=== PATIENT | female | born 1960 | race Caucasian/White ===

== ENCOUNTER → 2018-03-08 08:45 | Outpatient (CLI) | payer BC, SELFPAY ==
[2018-03-08 10:20] LABS: AST(SGOT) 22 U/L (15-37); Alanine Aminotransfer ALT/SGPT 24 U/L (13-56); Albumin, Serum 3.8 g/dL (3.2-5.0); Alkaline Phosphatase 75 U/L (45-117); Anion Gap 9 (5-15); BUN 12 mg/dL (7-18); BUN/Creat Ratio 16.5 RATIO (10-20); Calcium,Total 8.6 mg/dL (8.5-10.1); Chloride 108 mmol/L (98-107); Cholesterol 146 mg/dL (200); Creatinine, Serum 0.73 mg/dL (0.55-1.02); EST Glomerular Filtration Rate 87 mL/min (>60); Est Glom Filt Rate - Afr Amer 105 mL/min (>60); Globulin 3.9 g/dL (2.2-4.2); Glucose 91 mg/dL (74-106); High Density Lipoprotein 56 mg/dL; Potassium 4.2 mmol/L (3.5-5.1); Protein, Total 7.7 g/dL (6.4-8.2); Sodium Level 144 mmol/L (136-145); Thyroid Stim Hormone (TSH) 1.57 uIU/mL (0.358-3.74); Triglycerides 63 mg/dL; Very Low Density Lipoprotein 13 mg/dL (5-40)
== END ==
PROVIDERS: Family Provider Family Medicine; PCP Family Medicine; Visit Provider Family Medicine
DX: Z00.00 Encounter for general adult medical examination without abnormal findings (principal); R53.83 Other fatigue
CPT/HCPCS: 36415; 80053; 80061; 84443

== ENCOUNTER → 2018-03-23 12:18 | Outpatient (CLI) | payer BC, SELFPAY ==
--- NOTE | 2018-03-23 12:22 | BI_ITS ---
MAMMOGRAPHY - BILATERAL SCREENING 3-D CA SYNTHESIS REASON FOR EXAM: Female, 57 years old. Bilateral Screening 3-D tomosynthesis PERTINENT HISTORY: Asymptomatic. Fairly breast carcinoma, paternal aunt, age 50. TECHNIQUE: 2-D mammograms and 3-D Ca synthesis of the breast (s) were performed. CAD was performed. COMPARISON: 08/04/2016, 08/07/2015 FINDINGS: The breast composition is composed of scattered fibroglandular density. No significant asymmetric density, architecture distortion, abnormal microcalcification cluster, dominant mass, adenopathy, skin thickening or nipple retraction identified. Coarse benign-appearing calcifications. BI/SCREENING MAMM (CAD), BILAT IMPRESSION: No mammographic signs of malignancy. Routine yearly mammograms recommended. ASSESSMENT CATEGORY: BIRADS Category 2: Benign. A letter regarding these results will be sent to the patient by the facility within 30 days. FOLLOW UP RECOMMENDATION: Yearly follow up mammogram recommended. (A) Negative mammographic results should not deter biopsy as a palpable lesion should be followed on clinical grounds and biopsy performed if clinically persistent for 3 months or increasing size. Approximately 10% of breast cancers are not detected by mammography. A normal mammogram should not delay biopsy of a clinically suspicious abnormality. Electronically Signed: Elmo Burger, at 21:18 EDT Tel , Service support ,
== END ==
PROVIDERS: Family Provider Family Medicine; PCP Family Medicine; Visit Provider Family Medicine
DX: Z12.31 Encounter for screening mammogram for malignant neoplasm of breast (principal)
CPT/HCPCS: 77063; 77067

== ENCOUNTER → 2019-03-24 11:57 | Outpatient (CLI) | payer OTHER, SELFPAY ==
[2019-02-22 13:33] VITALS: BMI 29.5
--- NOTE | 2019-03-24 12:01 | BI_ITS ---
MAMMOGRAPHY - BILATERAL SCREENING REASON FOR EXAM: Female, 58 years old. Routine annual screening examination. PERTINENT HISTORY: Aunt with breast cancer. TECHNIQUE: Digital bilateral breast ca (3D mammographic acquisition) in the CC and MLO projections. 2-D mediolateral oblique (MLO) and craniocaudad (CC) views of both breasts were obtained. CAD: Full Field Digital Mammography with Computer Added Detection was performed. COMPARISON: Comparison is made with prior study dated March 23, 2018. FINDINGS: Breast Composition: There are scattered areas of fibroglandular density. There are no dominant masses or suspicious calcifications. No other significant abnormalities are identified. There has been no significant change since the prior study. BI/SCREEN MAMM (CAD) W/CA BILAT IMPRESSION: Stable bilateral screening mammogram. Yearly follow-up mammogram recommended. (A) ASSESSMENT CATEGORY: BIRADS Category 1: Negative. A letter regarding these results will be sent to the patient by the facility within 30 days. Approximately 10% of breast cancers are not detected by mammography. A normal mammogram should not delay biopsy of a clinically suspicious abnormality. [id number] Electronically Signed: Zurdo Paul, at 13:24 EDT , Service support ,
== END ==
PROVIDERS: Family Provider Family Medicine; PCP Family Medicine; Referring Provider Family Medicine; Visit Provider Family Medicine
DX: Z12.31 Encounter for screening mammogram for malignant neoplasm of breast (principal); Z80.3 Family history of malignant neoplasm of breast
CPT/HCPCS: 77063; 77067

== ENCOUNTER → 2021-01-31 10:37 | Outpatient (CLI) | payer SELFPAY ==
[2019-02-22 13:33] VITALS: BMI 29.5
--- NOTE | 2021-01-31 10:43 | BI_ITS ---
MAMMOGRAPHY - BILATERAL SCREENING REASON FOR EXAM: Female, 60 years old. Routine annual screening examination. PERTINENT HISTORY: Aunt with breast cancer. TECHNIQUE: Digital bilateral breast ca (3D mammographic acquisition) in the CC and MLO projections. 2-D mediolateral oblique (MLO) and craniocaudad (CC) views of both breasts were obtained. CAD: Full Field Digital Mammography with Computer Added Detection was performed. COMPARISON: Comparison is made with prior study dated 03/24/2019 and 03/23/2018. FINDINGS: Breast Composition: The breasts are heterogeneously dense, which may obscure small masses. There are no dominant masses or suspicious calcifications. No other significant abnormalities are identified. There has been no significant change since the prior study. BI/SCRN MAMM (CAD)W/CA BILAT IMPRESSION: Stable bilateral screening mammogram. Yearly follow-up mammogram recommended. (A) ASSESSMENT CATEGORY: BIRADS Category 1: Negative. A letter regarding these results will be sent to the patient by the facility within 30 days. Approximately 10% of breast cancers are not detected by mammography. A normal mammogram should not delay biopsy of a clinically suspicious abnormality. [id number] Electronically Signed: Zurdo Paul MD at 11:45 EDT , Service support ,
== END ==
PROVIDERS: PCP Family Medicine; Referring Provider Family Medicine; Visit Provider Family Medicine
DX: Z12.31 Encounter for screening mammogram for malignant neoplasm of breast (principal)
CPT/HCPCS: 77063; 77067

== ENCOUNTER → 2021-04-18 09:43 | Outpatient (CLI) | payer OTHER, SELFPAY ==
[2021-04-18 12:43] LABS: AST(SGOT) 21 U/L (15-37); Alanine Aminotransfer ALT/SGPT 28 U/L (13-56); Albumin, Serum 3.9 g/dL (3.2-5.0); Alkaline Phosphatase 79 U/L (45-117); Anion Gap 6 (5-15); BUN 12 mg/dL (7-18); BUN/Creat Ratio 15.1 RATIO (10-20); Calcium,Total 8.6 mg/dL (8.5-10.1); Chloride 106 mmol/L (98-107); Cholesterol 167 mg/dL (200); EST Glomerular Filtration Rate 78 mL/min (>60); Est Glom Filt Rate - Afr Amer 94 mL/min (>60); Globulin 3.8 g/dL (2.2-4.2); Glucose 98 mg/dL (74-106); High Density Lipoprotein 58 mg/dL; Potassium 4.5 mmol/L (3.5-5.1); Protein, Total 7.7 g/dL (6.4-8.2); Sodium Level 139 mmol/L (136-145); Triglycerides 63 mg/dL; Very Low Density Lipoprotein 13 mg/dL (5-40)
[2021-04-18 13:00] LABS: Hemoglobin A1c 6.3 % (3.8-5.6)
== END ==
PROVIDERS: PCP Family Medicine; Referring Provider Family Medicine; Visit Provider Family Medicine
DX: Z00.00 Encounter for general adult medical examination without abnormal findings (principal); Z87.898 Personal history of other specified conditions
CPT/HCPCS: 36415; 80053; 80061; 83036

== ENCOUNTER → 2022-07-10 | Outpatient (CLI) | payer MEDICAID, SELFPAY ==
--- NOTE | 2022-07-10 10:45 | BI_ITS ---
MAMMOGRAPHY - BILATERAL SCREENING REASON FOR EXAM: Female, 62 years old. Routine annual screening examination. PERTINENT HISTORY: Aunt with breast cancer. TECHNIQUE: Digital bilateral breast ca (3D mammographic acquisition) in the CC and MLO projections. 2-D mediolateral oblique (MLO) and craniocaudad (CC) views of both breasts were obtained. CAD: Full Field Digital Mammography with Computer Added Detection was performed. COMPARISON: Comparison is made with prior study dated 01/31/2021 and 03/24/2019. FINDINGS: Breast Composition: The breasts are heterogeneously dense, which may obscure small masses. There are no dominant masses or suspicious calcifications. Stable small benign appearing bilateral axillary lymph nodes. No other significant abnormalities are identified. There has been no significant change since the prior study. BI/SCRN MAMM (CAD)W/CA BILAT IMPRESSION: Stable bilateral screening mammogram. Yearly follow-up mammogram recommended. (A) ASSESSMENT CATEGORY: BIRADS Category 2: Benign. A letter regarding these results will be sent to the patient by the facility within 30 days. Approximately 10% of breast cancers are not detected by mammography. A normal mammogram should not delay biopsy of a clinically suspicious abnormality. [id number] Electronically Signed: Zurdo Paul MD at 12:43 EST ,
== END | disposition home or self-care (01) ==
LOC: OPBI 10:44
PROVIDERS: PCP Family Medicine; Visit Provider Family Medicine
DX: Z12.31 Encounter for screening mammogram for malignant neoplasm of breast (principal); Z80.3 Family history of malignant neoplasm of breast
CPT/HCPCS: 77063; 77067

== ENCOUNTER → 2022-07-22 | Outpatient (CLI) | payer OTHER, SELFPAY ==
[2022-07-22 12:39] LABS: Absolute Lymphocyte Count 2.75 X10^3/uL (0.83-4.51); Absolute Neutrophil Count 2.6 X10^3/uL (2.0-7.7); Basophil# 0.08 X10^3/uL; Basophil% 1.3 % (0-1); Eosinophils% 1.6 % (0-5); Hematocrit 27.4 % (37-47); Lymphocyte # 2.75 X10^3/ul (0.83-4.51); Lymphocyte % 44.6 % (19-41); Mean Corp Hgb Conc 29.2 g/dL (32-36); Mean Corpuscular Hgb 20.5 pg (27.0-32.0); Mean Corpuscular Volume 70.1 fL (81-99); Monocyte# 0.66 X10^3/uL; Monocyte% 10.7 % (0-10); NRBC Flagged by Analyzer 0 % (0-5); Neutrophil # 2.56 X10^3/uL (2.7-7.7); Neutrophil % 41.6 % (47-70); Platelet Count 475 K/mm3 (150-450); RBC Distribution Width CV 18.5 % (11.6-14.6); RBC Distribution Width SD 46.5 fl (35.1-43.9); Red Blood Count 3.91 M/mm3 (4.2-5.4); White Blood Count 6.2 K/mm3 (4.4-11.0)
[2022-07-22 13:15] LABS: ALB/GLOB Ratio 1.1 RATIO (0.9-2.4); AST(SGOT) 20 U/L (15-37); Alanine Aminotransfer ALT/SGPT 27 U/L (13-56); Alkaline Phosphatase 64 U/L (45-117); Anion Gap 5 (5-15); BUN 17 mg/dL (7-18); BUN/Creat Ratio 18.4 RATIO (10-20); Calcium,Total 9.6 mg/dL (8.5-10.1); Chloride 104 mmol/L (98-107); Creatinine, Serum 0.92 mg/dL (0.55-1.02); EST Glomerular Filtration Rate 65 mL/min (>60); Est Glom Filt Rate - Afr Amer 79 mL/min (>60); Globulin 3.8 g/dL (2.2-4.2); Glucose 107 mg/dL (74-106); Potassium 4.9 mmol/L (3.5-5.1); Protein, Total 7.8 g/dL (6.4-8.2); Sodium Level 136 mmol/L (136-145); Thyroid Stim Hormone (TSH) 1.74 uIU/mL (0.358-3.74)
== END | disposition home or self-care (01) ==
LOC: BIMLAB 11:10
PROVIDERS: PCP Family Medicine; Referring Provider Family Medicine; Visit Provider Family Medicine
DX: R55 Syncope and collapse (principal)
CPT/HCPCS: 36415; 80053; 84443; 85025

== ENCOUNTER → 2022-07-24 | Outpatient (CLI) | payer OTHER, SELFPAY ==
[2022-07-24 16:55] LABS: Platelet Count 439 K/mm3 (150-450); RET-HE 20.8 pg (30-35); Reticulocyte Count 1.63 % (0.5-1.5)
[2022-07-24 17:47] LABS: Ferritin 9 ng/mL (8-252); Iron 26 ug/dL (50-170); Iron Binding Capacity,Total 504 ug/dL (250-450); PERCENT IRON SATURATION 5.2 % (15.0-55.0)
== END | disposition home or self-care (01) ==
LOC: BIMLAB 15:58
PROVIDERS: PCP Family Medicine; Visit Provider Family Medicine
DX: D50.9 Iron deficiency anemia, unspecified (principal)
CPT/HCPCS: 36415; 82728; 83540; 83550; 85045

== ENCOUNTER → 2022-08-04 | Outpatient (CLI) | payer OTHER, SELFPAY | END | disposition home or self-care (01) | LOC: LABSPEC 13:10 | PROVIDERS: PCP Family Medicine; Referring Provider Family Medicine; Visit Provider Family Medicine | DX: D50.9 Iron deficiency anemia, unspecified (principal) | CPT/HCPCS: 82274 ==

== ENCOUNTER → 2022-08-21 | Outpatient (CLI) | payer OTHER, SELFPAY ==
[2022-08-21 15:39] LABS: Absolute Neutrophil Count 2.6 X10^3/uL (2.0-7.7); Basophil# 0.05 X10^3/uL; Basophil% 0.9 % (0-1); Eosinophil# 0.06 X10^3/uL; Eosinophils% 1.1 % (0-5); Hematocrit 38.5 % (37-47); Hemoglobin 11.7 g/dL (12.0-15.0); Lymphocyte % 42.1 % (19-41); Mean Corp Hgb Conc 30.4 g/dL (32-36); Mean Corpuscular Hgb 25.3 pg (27.0-32.0); Mean Corpuscular Volume 83.2 fL (81-99); Mean Platelet Vol. 9.5 fl (6.2-12.0); Monocyte# 0.46 X10^3/uL; Monocyte% 8.4 % (0-10); NRBC Flagged by Analyzer 0 % (0-5); Neutrophil # 2.57 X10^3/uL (2.7-7.7); Neutrophil % 47.1 % (47-70); POSITIVE MORPHOLOGY YES; Platelet Count 370 K/mm3 (150-450); Red Blood Count 4.63 M/mm3 (4.2-5.4); White Blood Count 5.5 K/mm3 (4.4-11.0)
[2022-08-21 16:30] LABS: Differential Indicated SCAN CRITERIA MET
[2022-08-21 19:07] LABS: Platelet Estimate ADEQUATE (ADEQ); Platelet Morphology LARGE; Red Cell Morphology N CHROM NORMAL (NORM C&C)
[2022-08-21 19:08] LABS: Anisocytosis RARE
== END | disposition home or self-care (01) ==
LOC: BIMLAB 11:50
PROVIDERS: PCP Family Medicine; Referring Provider Family Medicine; Visit Provider Family Medicine
DX: D50.9 Iron deficiency anemia, unspecified (principal)
CPT/HCPCS: 36415; 85025

== ENCOUNTER → 2022-11-10 | Outpatient (CLI) | payer OTHER, SELFPAY ==
[2022-11-10 15:47] LABS: Absolute Neutrophil Count 2.8 X10^3/uL (2.0-7.7); Basophil# 0.04 X10^3/uL; Basophil% 0.7 % (0-1); Eosinophil# 0.06 X10^3/uL; Hematocrit 43.1 % (37-47); Hemoglobin 13.5 g/dL (12.0-15.0); Lymphocyte % 41.6 % (19-41); Mean Corp Hgb Conc 31.3 g/dL (32-36); Mean Corpuscular Volume 92.7 fL (81-99); Mean Platelet Vol. 9.5 fl (6.2-12.0); Monocyte# 0.49 X10^3/uL; Monocyte% 8.5 % (0-10); NRBC Flagged by Analyzer 0 % (0-5); Neutrophil # 2.76 X10^3/uL (2.7-7.7); Neutrophil % 47.9 % (47-70); Platelet Count 343 K/mm3 (150-450); RBC Distribution Width CV 14.1 % (11.6-14.6); Red Blood Count 4.65 M/mm3 (4.2-5.4); White Blood Count 5.8 K/mm3 (4.4-11.0)
== END | disposition home or self-care (01) ==
LOC: BIMLAB 12:14
PROVIDERS: PCP Family Medicine; Referring Provider Family Medicine; Visit Provider Family Medicine
DX: D50.9 Iron deficiency anemia, unspecified (principal)
CPT/HCPCS: 36415; 85025

== ENCOUNTER → 2023-05-27 | Outpatient (CLI) | payer MEDICARE, SELFPAY ==
[2023-05-27 12:34] LABS: Absolute Lymphocyte Count 1.98 X10^3/uL (0.83-4.51); Absolute Neutrophil Count 3.3 X10^3/uL (2.0-7.7); Basophil# 0.06 X10^3/uL; Eosinophils% 1.7 % (0-5); Hematocrit 39.6 % (37-47); Hemoglobin 12.7 g/dL (12.0-15.0); Lymphocyte # 1.98 X10^3/ul (0.83-4.51); Lymphocyte % 33.6 % (19-41); Mean Corp Hgb Conc 32.1 g/dL (32-36); Mean Corpuscular Volume 96.6 fL (81-99); Mean Platelet Vol. 9.5 fl (6.2-12.0); Monocyte# 0.44 X10^3/uL; Monocyte% 7.5 % (0-10); NRBC Flagged by Analyzer 0 % (0-5); Neutrophil % 55.9 % (47-70); Platelet Count 417 K/mm3 (150-450); RBC Distribution Width CV 12.2 % (11.6-14.6); RBC Distribution Width SD 43.3 fl (35.1-43.9); White Blood Count 5.9 K/mm3 (4.4-11.0)
== END | disposition home or self-care (01) ==
LOC: BIMLAB 10:30
PROVIDERS: PCP Family Medicine; Referring Provider Family Medicine; Visit Provider Family Medicine
DX: R20.0 Anesthesia of skin (principal); R20.2 Paresthesia of skin
CPT/HCPCS: 36415; 85025

== ENCOUNTER → 2023-07-02 | Outpatient (CLI) | payer MEDICARE, SELFPAY ==
--- NOTE | 2023-07-02 15:04 | BI_ITS ---
MAMMOGRAPHY - BILATERAL SCREENING REASON FOR EXAM: Female, 63 years old. Routine annual screening examination. PERTINENT HISTORY: Daughter with breast cancer. Aunt with breast cancer. TECHNIQUE: Digital bilateral breast ca (3D mammographic acquisition) in the CC and MLO projections. 2-D mediolateral oblique (MLO) and craniocaudad (CC) views of both breasts were obtained. CAD: Full Field Digital Mammography with Computer Added Detection was performed. COMPARISON: Comparison is made with prior study dated July 10, 2022 and January 31, 2021. FINDINGS: Breast Composition: The breasts are heterogeneously dense, which may obscure small masses. There are no dominant masses or suspicious calcifications. Stable small benign-appearing bilateral axillary lymph nodes. No other significant abnormalities are identified. There has been no significant change since the prior study. BI/SCRN MAMM (CAD)W/CA BILAT IMPRESSION: Stable bilateral screening mammogram. Yearly follow-up mammogram recommended. (A) ASSESSMENT CATEGORY: BIRADS Category 2: Benign. A letter regarding these results will be sent to the patient by the facility within 30 days. Approximately 10% of breast cancers are not detected by mammography. A normal mammogram should not delay biopsy of a clinically suspicious abnormality. [id number] Electronically Signed: Zurdo Paul MD at 8:26 EST ,
== END | disposition home or self-care (01) ==
LOC: OPBI 15:03
PROVIDERS: PCP Family Medicine; Referring Provider Family Medicine; Visit Provider Family Medicine
DX: Z12.31 Encounter for screening mammogram for malignant neoplasm of breast (principal)
CPT/HCPCS: 77063; 77067

== ENCOUNTER → 2024-07-28 | Outpatient (CLI) | payer MEDICARE, SELFPAY ==
--- NOTE | 2024-07-28 13:06 | BI_ITS ---
MAMMOGRAPHY - BILATERAL SCREENING REASON FOR EXAM: Female, 64 years old. Routine annual screening examination. PERTINENT HISTORY: Daughter with breast cancer. Aunt with breast cancer. TECHNIQUE: Digital bilateral breast ca (3D mammographic acquisition) in the CC and MLO projections. 2-D mediolateral oblique (MLO) and craniocaudad (CC) views of both breasts were obtained. CAD: Full Field Digital Mammography with Computer Added Detection was performed. COMPARISON: Comparison is made with prior study July 02, 2023 and July 10, 2022. FINDINGS: Breast Composition: The breasts are heterogeneously dense, which may obscure small masses. There are no dominant masses or suspicious calcifications. Stable small bilateral axillary lymph nodes. No other significant abnormalities are identified. There has been no significant change since the prior study. BI/SCRN MAMM (CAD)W/CA BILAT IMPRESSION: Stable bilateral screening mammogram. Yearly follow-up mammogram recommended. (A) ASSESSMENT CATEGORY: BIRADS Category 2: Benign. A letter regarding these results will be sent to the patient by the facility within 30 days. Approximately 10% of breast cancers are not detected by mammography. A normal mammogram should not delay biopsy of a clinically suspicious abnormality. [id number] Electronically Signed: Zurdo Paul MD at 15:13 EST ,
== END | disposition home or self-care (01) ==
LOC: OPBI 13:06
PROVIDERS: PCP Family Medicine; Referring Provider Family Medicine; Visit Provider Family Medicine
DX: Z12.31 Encounter for screening mammogram for malignant neoplasm of breast (principal)
CPT/HCPCS: 77063; 77067

== ENCOUNTER → 2025-07-31 | Outpatient (CLI) | payer MEDICARE, SELFPAY ==
--- NOTE | 2025-07-31 11:00 | BI_ITS ---
EXAM: SCRN MAMM (CAD)W/CA BILAT DATE: 07/31/2025 CLINICAL HISTORY: F, Age 65 y/o , SCREENING TECHNIQUE: Procedure Code: [id number] Modality: MG Procedure: SCRN MAMM (CAD)W/CA BILAT COMPARISON: Prior exam(s) dated 07/28/2024, 07/02/2023, and 07/10/2022. FINDINGS: TISSUE DENSITY: There are scattered areas of fibroglandular density. Bilateral Breast Mammographic Findings: Benign-appearing round calcifications and vascular calcifications are seen in both breasts. Stable nodular masslike densities are seen in both breasts. There are no suspicious masses, suspicious cluster of microcalcifications, architectural distortion or secondary signs of malignancy identified in either breast. BI/SCRN MAMM (CAD)W/CA BILAT IMPRESSION: Benign screening mammogram. OVERALL FINAL ASSESSMENT BI-RADS 2: BENIGN RECOMMENDATION: Routine annual follow-up in 1 Year Additional Recommendation none A letter with findings and recommendations will be mailed to the patient. Reading Location: [id number]
--- OUTSIDE RECORDS SUMMARY | 2025-07-31 12:14 | XMS RPT_ITS | CCD ---
Author Organization [facility] Care Team Providers [facility] Name Role Phone Dr. Gomez Oliva Primary Care Provider [phone] Dr. Gomez Oliva Attending Provider [phone] Gomez Oliva Referring Provider [phone] Gomez Oliva DO Primary Care Provider Abad Sanches MD Unavailable ABAD SANCHES Attending Unavailable GOMEZ OLIVA Primary Care Unavailable GOMEZ OLIVA R Primary Care Unavailable GOMEZ OLIVA DO Primary Care Physician AKANKSHA STEPHENSON, DR GONCALVES Attending Unavailable GOMEZ OLIVA DO Primary Care Unavailable Gomez Oliva Attending Unavailable Pj, Gomez R Referring Unavailable Brown, Gomez R Primary Care Unavailable Brown, Gomez R Primary Care Unavailable Brown, Gomez R Attending Unavailable Pj, Gomez R Referring Unavailable Brown, Gomez R Attending Unavailable Brown, Gomez R Referring Unavailable Brown, Gomez R Primary Care Unavailable Medications Current Medications Medication Drug Class(es) Dates Sig (Normalized) Sig (Original) 8 hr acetaminophen 650 mg extended release oral tablet (7 sources) Start: 07-22-2022 acetaminophen (Tylenol 8 HOUR) 650 mg ER tablet Take by mouth. 07/22/2022 Active Start: 07-22-2022 take 1 tablet by mouth once Ac etaminophen (Tylenol Arthritis Pain) 650 mg tablet extended release Active 650 MG PO ONCE July 22, 2022 12:00am azelastine hydrochloride 0.137 mg/actuat metered dose nasal spray (1 source) Histamine-1 Receptor Antagonist Start: 02-01-2024 take 1 spray(s) nasal route twice daily azelastine (Astelin) 137 mcg (0.1 %) nasal spray Administer 1 spray into each nostril 2 times a day. 02/01/2024 Active B-Complex With Vitamin C (Super B Complex-Vitamin C) tablet (7 sources) Start: 03-02-2018 take 1 tablet by mouth once daily B-Complex With Vitamin C (Super B Complex-Vitamin C) tablet Active 1 TABLET PO daily March 02, 2018 12:00am Start: 03-02-2018 take 1 tablet by claude th once daily B-Complex With Vitamin C (Super B Complex-Vitamin C) tablet Active 1 TABLET PO daily March 01, 2018 11:00pm biotin 1 mg oral capsule (7 sources) Start: 02-26-2018 take 1 mg by mouth once daily Biotin Active 1 MG PO daily February 25, 2018 11:00pm Ca Carb-D3-Mag Gq-Lnr-Gezu-Zn (Caltrate + D3 Plus Minerals) 300 mg-800 unit -25 mg-0.5 mg tablet (6 sources) Start: 02-26-2018 take 1 tablet by mouth once daily in the morning Ca Carb-D3-Mag Fi-Pag-Jalg-Zn (Caltrate + D3 Plus Minerals) 300 mg-800 unit -25 mg-0.5 mg tablet Active 1 TABLET PO EVERY MORNING February 26, 2018 12:00am Start: 02-26-2018 take 1 tablet by claude th once daily in the morning Ca Carb-D3-Mag Bc-Djd-Lalo-Zn (Caltrate + D3 Plus Minerals) 300 mg-800 unit -25 mg-0.5 mg tablet Active 1 TABLET PO EVERY MORNING February 25, 2018 11:00pm Ca Carb-D3-Mag Et-Gma-Tqrr-Zn (Caltrate-D3 Plus Minerals) 300 mg-800 unit -25 mg-0.5 mg tablet (1 source) Start: 02-26-2018 take 1 tablet by mouth once daily in the morning Ca Carb-D3-Mag Oc-Ydm-Zdyz-Zn (Caltrate-D3 Plus Minerals) 300 mg-800 unit -25 mg-0.5 mg tablet Active 1 TABLET PO EVERY MORNING February 25, 2018 11:00pm etodolac 400 mg oral tablet (1 source) Nonsteroidal Anti-inflammatory Drug Start: 06-03-2024 take 1 tablet by mouth twice daily as needed for pain etodolac (Lodine) 400 mg tablet Take 1 tablet (400 mg) by mouth 2 times a day as needed for pain. 06/03/2024 Active flunisolide 0.025 mg/actuat metered dose nasal spray (1 source) Corticosteroid Start: 03-16-2024 take 2 spray(s) nasal route twice daily flunisolide (Nasalide) 25 mcg (0.025 %) spray,non-aerosol Administer 2 sprays into each nostril 2 times a day. 03/16/2024 Active ipratropium bromide 0.042 mg/actuat metered dose nasal spray (1 source) Anticholinergic Start: 12-17-2023 ipratropium (Atrovent) 42 mcg (0.06 %) nasal spray USE 2 SPRAYS IN EACH NOSTRIL 2 TO 3 TIMES DAILY NEEDED 12/17/2023 Active lactobacillus rhamnosus gg [id number] unt chewable tablet (7 sources) Start: 04-17-2021 Lactobacillus Rhamnosus Gg ([employer]) 5 billion cell tablet,chewable Active 1 TABLET PO DAILY April 16, 2021 11:00pm multivitamin capsule (7 sources) Start: 02-26-2018 take 1 capsule by mouth once daily in the morning multivitamin capsule Active 1 CAP PO EVERY MORNING February 26, 2018 12:00am Start: 02-26-2018 take 1 capsule by mo [facility] once daily in the morning multivitamin capsule Active 1 CAP PO EVERY MORNING February 25, 2018 11:00pm Zinc (7 sources) Start: 02-26-2018 take 50 mg by mouth once daily Zinc Active 50 MG PO daily February 26, 2018 12:00am Start: 02-26-2018 take 50 mg by mouth once daily Zinc Active 50 MG PO daily February 25, 2018 11:00pm Completed/Discontinued Medications Medication Drug Class(es) Dates Sig (Normalized) Sig (Original) citric acid 68055 mg / magnesium oxide 3500 mg / picosulfate sodium 10 mg powder for oral solution (6 sources) Calculi Dissolution Agent, Anti-coagulant Start: 02-26-2018 End: 03-02-2018 sod picosulf 10 mg-magnes 3.5 gram-citric ac 12 gram oral powder pack Discontinued 1 PACKET PO EVERY MORNING February 26, 2018 12:00am March 02, 2018 1:57pm naproxen sodium 220 mg oral capsule (7 sources) Nonsteroidal Anti-inflammatory Drug Start: 02-26-2018 End: 12-18-2022 take 1 capsule by mouth twice daily Naproxen Sodium (Aleve) 220 mg capsule Discontinued 220 MG PO TWICE A DAY February 25, 2018 11:00pm December 18, 2022 12:13pm sod picosulf 10 mg-magnes 3.5 gram-citric ac 12 gram oral powder pack (1 source) Start: 02-26-2018 End: 03-02-2018 sod picosulf 10 mg-magnes 3.5 gram-citric ac 12 gram oral powder pack Discontinued 1 PACKET PO EVERY MORNING February 25, 2018 11:00pm March 02, 2018 12:57pm terbinafine 250 mg oral tablet (14 sources) Allylamine Antifungal Start: 03-02-2018 End: 02-22-2019 take 250 mg by mouth once daily Terbinafine Hcl Discontinued 250 MG PO daily July 05, 2018 4:06pm February 22, 2019 12:30pm Problems Active Problems Problem Classification Problem Date Documented Da te Episodic/Chronic Conditions associated with dizziness or vertigo (2 sources) Benign paroxysmal positional vertigo; Translations: [Benign paroxysmal vertigo, unspecified ear] 05-27-2023 Episodic Deficiency and other anemia (6 sources) Iron deficiency anemia; Translations: [Iron deficiency anemia, unspecified] 07-23-2022 Episodic Deficiency and other anemia (1 source) Iron deficiency anemia, unspecified; Translations: [Iron deficiency anemia, unspecified] 05-27-2023 Episodic Esophageal disorders (2 sources) Gastro-esophageal reflux disease with esophagitis; Translations: [Gastroesophageal reflux disease with esophagitis] 12-18-2022 Chronic Osteoarthritis (5 sources) Primary gonarthrosis, bilateral; Translations: [Bilateral primary osteoarthritis of knee] Onset: 06-09-2024 06-09-2024 Chronic Other and unspecified benign neoplasm (6 sources) Neoplasm of soft tissue; Translations: [Other benign neoplasm of skin, unspecified] 02-26-2018 Episodic Other and unspecified benign neoplasm (1 source) Dysplastic nevus of skin; Translations: [Other benign neoplasm of skin, unspecified] 02-26-2018 Episodic Other bone disease and musculoskeletal deformities (7 sources) Segmental dysfunction; Translations: [Segmental and somatic dysfunction of abdomen and other regions] 02-26-2018 Episodic Other connective tissue disease (1 source) Artificial knee joint present; Translations: [Presence of left artificial knee joint] Chronic Other nervous system disorders (7 sources) Paresthesia of upper limb; Translations: [Anesthesia of skin] 02-22-2019 Episodic Other screening for suspected conditions (not mental disorders or infectious disease) (2 sources) Encounter for screening mammogram for malignant neoplasm of breast; Translations: [Encounter for screening mammogram for malignant neoplasm of breast] Onset: 08-26-2024 Episodic Other skin disorders (7 sources) Senile hyperkeratosis; Translations: [Actinic keratosis] 02-26-2018 Episodic Phlebitis; thrombophlebitis and thromboembolism (4 sources) Deep venous thrombosis of left lower extremity; Translations: [Acute embolism and thrombosis of unspecified deep veins of left lower extremity] Onset: 06-09-2024 06-09-2024 Episodic Residual codes; unclassified (7 sources) H/O: endocrine disorder; Translations: [Personal history of other specified conditions] 04-17-2021 Episodic Residual codes; unclassified (1 source) Personal history of other specified conditions; Translations: [Personal history of other endocrine, metabolic, and immunity disorders] 05-27-2023 Episodic Spondylosis; intervertebral disc disorders; other back problems (14 sources) Low back pain; Translations: [Low back pain] 02-26-2018 Episodic Syncope (11 sources) Syncope and collapse; Translations: [Syncope and collapse] Episodic Past or Other Problems Problem Classification Problem Date Documented Da te Episodic/Chronic Unclassified (1 source) Onset: 06-09-2024 06-09-2024 Results Test Name Value Interpretation Reference Range Facility Internal Medicine Office Vis [facility] 08-31-2024 Internal Medicine Office Visit [facility] [address] [place] [address] OFFICE VISIT Date of Service: 08/31/24 MR#: [id number] Acct: [id number] Name: JOSEPHINE CHOI Rep #: [id number] : 1960 Provider: Dr. Gomez valencia, DO Age/Sex: 64/F Location: [facility] Status: Signed Intake Vital Signs 06/01/24 08:27 08/31/24 13:17 Height 5 ft 1 in 5 ft 1 in Weight: 155 lb 9 oz 163 lb 4 oz BMI 29.4 30.8 BP 120/82 H 118/68 Blood Pressure Location Lt brachial Rt brachial Position Sitting Sitting Respiration 16 14 Pulse 66 76 Pulse Source Monitor Monitor Temp 97.7 F L 96.4 F L Temp Source Temporal Temporal Pulse Oximetry (%) 95 98 Oxygen Delivery Method room air room air Intake Visit Reasons: ongoing eye issue Chief Complaint: small skin tag on lower left eye Can Washer Required: No Accompanied by: Allergies No Known Allergies Allergy (Unverified 08/31/24 13:15) Medications ???Medication ???Instructions ???Recorded ???Confirmed ???Type biotin 1 mg capsule 1 mg PO QDAY 02/26/18 08/31/24 History calcium 300 mg-D3 20 mcg-magnesium 1 tab PO QAM 02/26/18 08/31/24 History 25 mg-coppr 0.5 pb-lxtb-qgln tablet (Caltrate-D3 Plus Minerals) multivitamin 1 cap PO QAM 02/26/18 08/31/24 History zinc 50 mg tablet 50 mg PO QDAY 02/26/18 08/31/24 History Lactobacillus rhamnosus GG 5 1 tab PO DAILY 04/17/21 08/31/24 History billion cell chewable tablet ([employer]) acetaminophen 650 mg 650 mg PO ONCE 07/22/22 08/31/24 History tablet,extended release (Tylenol Arthritis Pain) Have you fallen in the past year?: No Nurse's Note: skin tag [facility] History Diabetes Segmental dysfunction Low back pain Neck pain Senile hyperkeratosis Dysplastic nevus of skin Surgical History History of back surgery History of knee surgery History of gastric bypass History of laminectomy Normal colonoscopy History of hysterectomy Family History Mother Hypertension Heart disease Thyroid disorder Diabetes Sister Diabetes Social History Smoking Status: Never smoker alcohol intake: current alcohol intake frequency: holidays/special occasions only substance use type: does not use what type of physical activity do you participate in: none HPI HPI Chief Complaint: small skin tag on lower left eye Details: JOSEPHINE CHOI, is a 64 F who presents to the office today for a lesion under her left lower eyelid. This lesion has been there for some time but it is protruding a little bit more and bothering her more. ROS Const Constitutional: No body ache, excessive sweating, fatigue, fever(s), frequent falls, headache(s), snoring, weakness, weight change, sleep problems or change in appetite Eyes Eyes: No blurry vision, change in vision, eye pain or Light sensitivity ENT ENT: No abnormal hearing, ear or mastoid pain, tinnitus, nasal congestion, headache(s), neck pain or sore throat Resp Respiratory: No cough, shortness of breath, snoring or wheezing Cardio Cardiology: No chest pain at rest, chest pain with exertion, excessive sweating, shortness of breath, dyspnea on exertion, lightheadedness, orthopnea or palpitations Gastro GI: No abdominal pain, change in bowel habits, constipation, cramping, diarrhea, nausea/dyspepsia or vomiting Genitourinary-Female : No burning urination, painful urination, urinary incontinence, urinary frequency, blood in urine, abnormal periods or pelvic pain Musc Musculoskeletal: No abnormal gait, joint pain, back pain, limited range of motion, neck pain, numbness, stiffness, tingling or Arthritis Skin Skin: Positive for other (skin tag); No dry skin, redness, lesions, itchy eyes, rash or wounds Neuro Neurology: No abnormal gait, abnormal hearing, abnormal speech, dizziness, weakness, frequent falls, headache(s), memory loss, numbness or tingling Psych Psychiatric: No anxiety, No change in appetite, No depression, No memory loss and No Thoughts of harming yourself/Others Endo Endocrine: No cold intolerance, excessive sweating, fatigue, flushing, heat intolerance, increased thirst/drinking, increased hunger or weight change Aller/Imm Allergy/Immunologic: No itchy eyes, seasonal allergy symptoms, hives or wheezing Bill/Lymp Hematologic/Lymphati c: No easy bleeding, easy bruising or enlarged lymph nodes Exam Const General: cooperative and healthy appearing Nutritional Appearance: average body habitus Skin Lesions: lesion noted (Patient has a 4 mm seborrheic keratosis under her left lower eyelid.) Coding Level of Care Cod (more content not included)... Normal [facility] SCRN MAMM (CAD)W/CA Crump n 07-28-2024 SCRN MAMM (CAD)W/CA BILAT [facility] Imaging Services [address] [place] [address] SCRN MAMM (CAD)W/CA BILAT MR#: [id number] Acct: [id number] Name: JOSEPHINE CHOI Rep #: [id number] : 1960 F 64 From: Zurdo mccullough MD PCP: Dr. Gomez Oliva, DO Status: [facility] Study: SCRN MAMM (CAD)W/CA BILAT Date of Exam: 01/14 Exam# [id number] Ordering Dr: Gomez Oliva DO [id number] MAMMOGRAPHY - BILATERAL SCREENING REASON FOR EXAM: Female, 64 years old. Routine annual screening examination. PERTINENT HISTORY: Daughter with breast cancer. Aunt with breast cancer. TECHNIQUE: Digital bilateral breast ca (3D mammographic acquisition) in the CC and MLO projections. 2-D mediolateral oblique (MLO) and craniocaudad (CC) views of both breasts were obtained. CAD: Full Field Digital Mammography with Computer Added Detection was performed. COMPARISON: Comparison is made with prior study July 02, 2023 and July 10, 2022. FINDINGS: Breast Composition: The breasts are heterogeneously dense, which may obscure small masses. There are no dominant masses or suspicious calcifications. Stable small bilateral axillary lymph nodes. No other significant abnormalities are identified. There has been no significant change since the prior study. BI/SCRN MAMM (CAD)W/CA BILAT IMPRESSION: Stable bilateral screening mammogram. Yearly follow-up mammogram recommended. (A) ASSESSMENT CATEGORY: BIRADS Category 2: Benign. A letter regarding these results will be sent to the patient by the facility within 30 days. Approximately 10% of breast cancers are not detected by mammography. A normal mammogram should not delay biopsy of a clinically suspicious abnormality. [id number] Electronically Signed: Zurdo Paul MD at 15:13 EST , CC: Dr. Gomez Oliva, DO Tractor Crane Operator: Signed Normal [facility] Coagulation surface inducedo n 06-09-2024 aPTT Coag (PPP) [Time] 26 s Low 27-38 Un [facility] Comment on above: Order Comment: The A PTT is no longer used for monitoring Unfractionated Heparin Therapy. For monitoring Heparin Therapy, use the Heparin Assay. Performed By: #### 1 [id number] #### SIVAN Vance ([id number]) [facility] ([facility]) [address] [place], [place] [id number] Coagulation tissue factor in ducedon 06-09-2024 PT Coag (PPP) [Time] 10.7 s Normal 9.8-12.8 [facility] Comment on above: Performed By: #### 5 902-2 #### SIVAN Vance ([id number]) [facility] ([facility]) [address] [place] [id number] PT Coag (PPP) [Time]on 06-09 INR Coag (PPP) [Relative time] 1.0 Normal 0.9-1.1 [facility] Comment on above: Performed By: #### 5 902-2 #### SIVAN Vance ([id number]) [facility] ([facility]) [address] [place] [address] Absolute lymphocyte countOrd ered By: Gomez Oliva on 05-27-2023 Lymphocytes Auto (Unsp spec) [#/Vol] 1.98 10*3/uL 0.83-4.51 [facility] Basophil percentageOrdered B y: Gomez Oliva on 05-27-2023 Basophils/100 WBC (Bld) 1.0 % 0-1 [facility] Eosinophils/100 WBC (Bld) 1.7 % 0-5 [facility] Neutrophils (Bld) [#/Vol] 3.3 10*3/uL 2.0-7.7 [facility] Neutrophils/100 WBC (Bld) 55.9 % 47-70 [facility] WBC (Bld) [#/Vol] 5.9 10*3/uL 4.4-11.0 [facility] Blood erythrocytes count (nu mber/volume)Ordered By: Gomez Oliva on 05-27-2023 RBC (Bld) [#/Vol] 4.10 10*6/uL 4.2-5.4 [facility] Blood hemoglobin measurement (mass/volume)Ordered By: Gomez Oliva on 05-27-2023 Hemoglobin (Bld) [Mass/Vol] 12.7 g/dL 12.0-15.0 [facility] Blood lymphocytes/100 leukoc ytesOrdered By: Gomez Oliva on 05-27-2023 Lymphocytes/100 WBC (Bld) 33.6 % 19-41 [facility] Blood monocytes/100 leukocyt esOrdered By: Gomez Oliva on 05-27-2023 Monocytes/100 WBC (Bld) 7.5 % 0-10 [facility] Blood platelet mean volumeOr dered By: Gomez Oliva on 05-27-2023 Platelet mean volume (Bld) [Entitic vol] 9.5 fL 6.2-12.0 [facility] Determination of erythrocyte mean corpuscular volume (MCV)Ordered By: Gomez Oliva on 05-27-2023 MCV (RBC) [Entitic vol] 96.6 fL 81-99 [facility] Hematocrit Auto (Bld) [Volum e fraction]Ordered By: Gomez Oliva on 05-27-2023 Hematocrit (Bld) [Volume fraction] 39.6 % 37-47 [facility] - Hematology and Cell countsOrdered By: Gomez Oliva on 05-27-2023 Erythrocyte distribution width (RBC) [Entitic vol] 43.3 fL 35.1-43.9 [facility] Erythrocyte distribution width (RBC) [Ratio] 12.2 % 11.6-14.6 [facility] Immature granulocytes/100 WBC (Bld) 0.300 % 0.0-0.9 [facility] Comment on above: IG% - Immature Granu locytes (promyelocytes, myelocytes and metamyelocytes) > 1% indicates that a LEFT SHIFT is Present. MCH (RBC) [Entitic mass] 31.0 pg 27.0-32.0 [facility] Nucleated RBC/100 WBC (Bld) [Ratio] 0 % 0-5 [facility] MCHC Auto (RBC) [Mass/Vol]Or dered By: Gomez Oliva on 05-27-2023 MCHC (RBC) [Mass/Vol] 32.1 g/dL 32-36 [facility] Platelets bldOrdered By: Estefany Oliva on 05-27-2023 Platelets (Bld) [#/Vol] 417 10*3/uL 150-450 [facility] Absolute lymphocyte countOrd ered By: Dr. Oliva on 11-10-2022 Lymphocytes Auto (Unsp spec) [#/Vol] 2.40 10*3/uL 0.83-4.51 [facility] Basophil percentageOrdered B y: Dr. Oliva on 11-10-2022 Basophils/100 WBC (Bld) 0.7 % 0-1 [facility] Eosinophils/100 WBC (Bld) 1.0 % 0-5 [facility] Neutrophils (Bld) [#/Vol] 2.8 10*3/uL 2.0-7.7 [facility] Neutrophils/100 WBC (Bld) 47.9 % 47-70 [facility] WBC (Bld) [#/Vol] 5.8 10*3/uL 4.4-11.0 [facility] Blood erythrocytes count (nu mber/volume)Ordered By: Dr. Oliva on 11-10-2022 RBC (Bld) [#/Vol] 4.65 10*6/uL 4.2-5.4 [facility] Blood hemoglobin measurement (mass/volume)Ordered By: Dr. Oliva on 11-10-2022 Hemoglobin (Bld) [Mass/Vol] 13.5 g/dL 12.0-15.0 [facility] Blood lymphocytes/100 leukoc ytesOrdered By: Dr. Oliva on 11-10-2022 Lymphocytes/100 WBC (Bld) 41.6 % 19-41 [facility] Blood monocytes/100 leukocyt esOrdered By: Dr. Oliva on 11-10-2022 Monocytes/100 WBC (Bld) 8.5 % 0-10 [facility] Blood platelet mean volumeOr dered By: Dr. Oliva on 11-10-2022 Platelet mean volume (Bld) [Entitic vol] 9.5 fL 6.2-12.0 [facility] Determination of erythrocyte mean corpuscular volume (MCV)Ordered By: Dr. Oliva on 11-10-2022 MCV (RBC) [Entitic vol] 92.7 fL 81-99 [facility] Hematocrit Auto (Bld) [Volum e fraction]Ordered By: Dr. Oliva on 11-10-2022 Hematocrit (Bld) [Volume fraction] 43.1 % 37-47 [facility] - Hematology and Cell countsOrdered By: Dr. Oliva on 11-10-2022 Erythrocyte distribution width (RBC) [Entitic vol] 44.0 fL 35.1-43.9 [facility] Erythrocyte distribution width (RBC) [Ratio] 14.1 % 11.6-14.6 [facility] Immature granulocytes/100 WBC (Bld) 0.300 % 0.0-0.9 [facility] Comment on above: IG% - Immature Granu locytes (promyelocytes, myelocytes and metamyelocytes) > 1% indicates that a LEFT SHIFT is Present. MCH (RBC) [Entitic mass] 29.0 pg 27.0-32.0 [facility] Nucleated RBC/100 WBC (Bld) [Ratio] 0 % 0-5 [facility] MCHC Auto (RBC) [Mass/Vol]Or dered By: Dr. Oliva on 11-10-2022 MCHC (RBC) [Mass/Vol] 31.3 g/dL 32-36 [facility] Platelets bldOrdered By: Dr. Oliva on 11-10-2022 Platelets (Bld) [#/Vol] 343 10*3/uL 150-450 [facility] Absolute lymphocyte countOrd ered By: Dr. Oliva on 08-21-2022 Lymphocytes Auto (Unsp spec) [#/Vol] 2.30 10*3/uL 0.83-4.51 [facility] Basophil percentageOrdered B y: Dr. Oliva on 08-21-2022 Basophils/100 WBC (Bld) 0.9 % 0-1 [facility] Eosinophils/100 WBC (Bld) 1.1 % 0-5 [facility] Neutrophils (Bld) [#/Vol] 2.6 10*3/uL 2.0-7.7 [facility] Neutrophils/100 WBC (Bld) 47.1 % 47-70 [facility] WBC (Bld) [#/Vol] 5.5 10*3/uL 4.4-11.0 [facility] Blood erythrocytes count (nu mber/volume)Ordered By: Dr. Oliva on 08-21-2022 RBC (Bld) [#/Vol] 4.63 10*6/uL 4.2-5.4 [facility] Blood hemoglobin measurement (mass/volume)Ordered By: Dr. Oliva on 08-21-2022 Hemoglobin (Bld) [Mass/Vol] 11.7 g/dL 12.0-15.0 [facility] Blood lymphocytes/100 leukoc ytesOrdered By: Dr. Oliva on 08-21-2022 Lymphocytes/100 WBC (Bld) 42.1 % 19-41 [facility] Blood monocytes/100 leukocyt esOrdered By: Dr. Oliva on 08-21-2022 Monocytes/100 WBC (Bld) 8.4 % 0-10 [facility] Blood platelet adequacy dete ction by light microscopyOrdered By: Dr. Oliva on 08-21-2022 Platelets LM Ql (Bld) ADEQUATE ADEQ [facility] Blood platelet mean volumeOr dered By: Dr. Oliva on 08-21-2022 Platelet mean volume (Bld) [Entitic vol] 9.5 fL 6.2-12.0 [facility] Blood platelet morphology de termination (nominal result)Ordered By: Dr. Oliva on 08-21-2022 Platelet morphology finding Nom (Bld) LARGE [facility] Determination of erythrocyte mean corpuscular volume (MCV)Ordered By: Dr. Oliva on 08-21-2022 MCV (RBC) [Entitic vol] 83.2 fL 81-99 [facility] Hematocrit Auto (Bld) [Volum e fraction]Ordered By: Dr. Oliva on 08-21-2022 Hematocrit (Bld) [Volume fraction] 38.5 % 37-47 [facility] - Hematology and Cell countsOrdered By: Dr. Oliva on 08-21-2022 Anisocytosis Ql (Bld) RARE [facility] Immature granulocytes/100 WBC (Bld) 0.400 % 0.0-0.9 [facility] Comment on above: IG% - Immature Granu locytes (promyelocytes, myelocytes and metamyelocytes) > 1% indicates that a LEFT SHIFT is Present. MCH (RBC) [Entitic mass] 25.3 pg 27.0-32.0 [facility] Nucleated RBC/100 WBC (Bld) [Ratio] 0 % 0-5 [facility] MCHC Auto (RBC) [Mass/Vol]Or dered By: Dr. Oliva on 08-21-2022 MCHC (RBC) [Mass/Vol] 30.4 g/dL 32-36 [facility] No Panel InformationOrdered By: Dr. Oliva on 08-21-2022 RDW Coefficient of Variation [place] [facility] Comment on above: Test not performed RDW Standard Deviation [facility] Comment on above: Test not performed Platelets bldOrdered By: Dr. Oliva on 08-21-2022 Platelets (Bld) [#/Vol] 370 10*3/uL 150-450 [facility] RBC morphologyOrdered By: Dr Dinora Oliva on 08-21-2022 RBC morphology finding Nom (Bld) N CHROM NORMAL NORM C&C [facility] Lower GI hemoglobin IA Ql (S tl)Ordered By: Dr. Oliva on 08-04-2022 Stool Occult Blood (LARA) Positive [facility] Hemoglobin in reticulocytes (mass per reticulocyte)Ordered By: Dr. Oliva on 07-24-2022 Hemoglobin (Reticulocytes) [Entitic mass] 20.8 pg 30-35 [facility] Iron measurement (mass/mass) Ordered By: Dr. Oliva on 07-24-2022 Iron (Unsp spec) [Mass/Mass] 26 ug/dL 50-170 [facility] No Panel InformationOrdered By: Dr. Oliva on 07-24-2022 Immature Reticulocyte Fraction 27.20 % 3.00-15.90 [facility] Reticulocyte Count 1.63 % 0.5-1.5 [facility] Total Iron Binding Capacity 504 ug/dL 250-450 [facility] Serum or plasma ferritin shabnam surement (mass/volume)Ordered By: Dr. Oliva on 07-24-2022 Ferritin [Mass/Vol] 9 ng/mL 8-252 [facility] Serum or plasma iron saturat ion measurement (mass fraction)Ordered By: Dr. Oliva on 07-24-2022 Iron saturation [Mass fraction] 5.2 % 15.0-55.0 [facility] Absolute lymphocyte countOrd ered By: Dr. Oliva on 07-22-2022 Lymphocytes Auto (Unsp spec) [#/Vol] 2.75 10*3/uL 0.83-4.51 [facility] Basophil percentageOrdered B y: Dr. Oliva on 07-22-2022 Basophils/100 WBC (Bld) 1.3 % 0-1 [facility] Bilirubin [Mass/Vol] 0.40 mg/dL 0.20-1.00 [facility] Comment on above: For patients on eltr ombopag therapy, use of Dimension [place] TBIL is not recommended. Chloride [Moles/Vol] 104 mmol/L 98-107 [facility] Eosinophils/100 WBC (Bld) 1.6 % 0-5 [facility] Glucose [Mass/Vol] 107 mg/dL 74-106 [facility] Comment on above: Fasting Glucose resu lt from 100 to 125 mg/dL suggests IMPAIRED HOMEOSTASIS per A.D.A. criteria. Neutrophils (Bld) [#/Vol] 2.6 10*3/uL 2.0-7.7 [facility] Neutrophils/100 WBC (Bld) 41.6 % 47-70 [facility] Potassium [Moles/Vol] 4.9 mmol/L 3.5-5.1 [facility] Protein [Mass/Vol] 7.8 g/dL 6.4-8.2 [facility] Sodium [Moles/Vol] 136 mmol/L 136-145 [facility] WBC (Bld) [#/Vol] 6.2 10*3/uL 4.4-11.0 [facility] Blood erythrocytes count (nu mber/volume)Ordered By: Dr. Oliva on 07-22-2022 RBC (Bld) [#/Vol] 3.91 10*6/uL 4.2-5.4 [facility] Blood hemoglobin measurement (mass/volume)Ordered By: Dr. Oliva on 07-22-2022 Hemoglobin (Bld) [Mass/Vol] 8.0 g/dL 12.0-15.0 [facility] Blood lymphocytes/100 leukoc ytesOrdered By: Dr. Oliva on 07-22-2022 Lymphocytes/100 WBC (Bld) 44.6 % 19-41 [facility] Blood monocytes/100 leukocyt esOrdered By: Dr. Oliva on 07-22-2022 Monocytes/100 WBC (Bld) 10.7 % 0-10 [facility] Blood platelet mean volumeOr dered By: Dr. Oliva on 07-22-2022 Platelet mean volume (Bld) [Entitic vol] 9.0 fL 6.2-12.0 [facility] Determination of erythrocyte mean corpuscular volume (MCV)Ordered By: Dr. Oliva on 07-22-2022 MCV (RBC) [Entitic vol] 70.1 fL 81-99 [facility] Hematocrit Auto (Bld) [Volum e fraction]Ordered By: Dr. Oliva on 07-22-2022 Hematocrit (Bld) [Volume fraction] 27.4 % 37-47 [facility] Laboratory - Chemistry and C hemistry - challengeOrdered By: Dr. Oliva on 07-22-2022 ALP [Catalytic activity/Vol] 64 U/L 45-117 [facility] ALT [Catalytic activity/Vol] 27 U/L 13-56 [facility] CO2 [Moles/Vol] 27.0 mmol/L 21.0-32.0 [facility] Globulin (S) [Mass/Vol] 3.8 g/dL 2.2-4.2 [facility] Urea nitrogen/Creatinine [Mass ratio] 18.4 mg/mg 10-20 [facility] Laboratory - Hematology and Cell countsOrdered By: Dr. Oliva on 07-22-2022 Erythrocyte distribution width (RBC) [Entitic vol] 46.5 fL 35.1-43.9 [facility] Erythrocyte distribution width (RBC) [Ratio] 18.5 % 11.6-14.6 [facility] Immature granulocytes/100 WBC (Bld) 0.200 % 0.0-0.9 [facility] Comment on above: IG% - Immature Granu locytes (promyelocytes, myelocytes and metamyelocytes) > 1% indicates that a LEFT SHIFT is Present. MCH (RBC) [Entitic mass] 20.5 pg 27.0-32.0 [facility] Nucleated RBC/100 WBC (Bld) [Ratio] 0 % 0-5 [facility] MCHC Auto (RBC) [Mass/Vol]Or dered By: Dr. Oliva on 07-22-2022 MCHC (RBC) [Mass/Vol] 29.2 g/dL 32-36 [facility] No Panel InformationOrdered By: Dr. Oliva on 07-22-2022 Estimated GFR (MDRD) Amer 79 mL/min >60 [facility] Comment on above: GFR Calc Estimated GFR (MDRD) Non-Af Amer 65 mL/min >60 [facility] Comment on above: Non- GFR Calc Thyroid Stimulating Hormone (TSH) 1.74 uIU/mL 0.358-3.74 [facility] Platelets bldOrdered By: Dr. Oliva on 07-22-2022 Platelets (Bld) [#/Vol] 475 10*3/uL 150-450 [facility] Serum or plasma albumin malgorzata urement (mass/volume)Ordered By: Dr. Oliva on 07-22-2022 Albumin [Mass/Vol] 4.0 g/dL 3.2-5.0 [facility] Serum or plasma albumin/glob ulin mass ratioOrdered By: Dr. Oliva on 07-22-2022 Albumin/Globulin [Mass ratio] 1.1 {ratio} 0.9-2.4 [facility] Serum or plasma calcium malgorzata urement (mass/volume)Ordered By: Dr. Oliva on 07-22-2022 Calcium [Mass/Vol] 9.6 mg/dL 8.5-10.1 [facility] Serum or plasma creatinine m easurement (mass/volume)Ordered By: Dr. Oliva on 07-22-2022 Creatinine [Mass/Vol] 0.92 mg/dL 0.55-1.02 [facility] Comment on above: The validity of the calculated GFR & GFRAA in patients over 70 years has not been determined. Clinical correlation is essential. Serum or plasma urea nitroge n measurement (mass/volume)Ordered By: Dr. Oliva on 07-22-2022 Urea nitrogen [Mass/Vol] 17 mg/dL 7-18 [facility] Thin prep Papanicolaou smear with manual screeningOrdered By: Dr. Oliva on 07-22-2022 Thin prep Papanicolaou smear with manual screening 20 U/L 15-37 [facility] Thin prep Papanicolaou smear with manual screening 5 5-15 [facility] Lower GI hemoglobin IA Ql (S tl) Stool Occult Blood (LARA) Positive [facility] Work Phone: Vital Signs Date Time Vital Sign Value Performing Clinician Facility 06-09-2024 08:14-0400 Body height 151.5 cm Abad Sanches MD Work Phone: [facility] 06-09-2024 08:14-0400 Body mass index (BMI) [Ratio] 31.15 kg/m2 Abad Sanches MD Work Phone: [facility] 06-09-2024 08:14-0400 Body temperature 97.5 [degF] Abad Sanches MD Work Phone: [facility] 06-09-2024 08:14-0400 Body weight 71.5 kg Abad Sanches MD Work Phone: [facility] 06-09-2024 08:14-0400 Diastolic blood pressure 79 mm[Hg] Abad Sanches MD Work Phone: [facility] 06-09-2024 08:14-0400 Heart rate 75 /min Abad Sanches MD Work Phone: [facility] 06-09-2024 08:14-0400 Respiratory rate 16 /min Abad Sanches MD Work Phone: [facility] 06-09-2024 08:14-0400 SaO2% (BldA) [Mass fraction] 96 % Abad Sanches MD Work Phone: [facility] 06-09-2024 08:14-0400 Systolic blood pressure 123 mm[Hg] Abad Sanches MD Work Phone: [facility] 05-27-2023 10:01-0400 Body height 154.[address] Gomez Oliva Work Phone: [facility] 05-27-2023 10:01-0400 Body mass index (BMI) [Ratio] 30.4 kg/m2 Dr. Gomez Oliva Work Phone: [facility] 05-27-2023 10:01-0400 Body temperature 95.8 [degF] Dr. Gomez Oliva Work Phone: [facility] 05-27-2023 10:01-0400 Body weight 73.[address] Gomez Oliva Work Phone: [facility] 05-27-2023 10:01-0400 Diastolic blood pressure 80 mm[Hg] Dr. Gomez Oliva Work Phone: [facility] 05-27-2023 10:01-0400 Heart rate 94 /min Dr. Gomez Oliva Work Phone: [facility] 05-27-2023 10:01-0400 Respiratory rate 16 /min Dr. Gomez Oliva Work Phone: [facility] 05-27-2023 10:01-0400 SaO2% (BldA) [Mass fraction] 97 % Dr. Gomez Oliva Work Phone: [facility] 05-27-2023 10:01-0400 Systolic blood pressure 144 mm[Hg] Dr. Gomez Oliva Work Phone: [facility] 07-22-2022 10:44-0500 Body temperature 97.5 [degF] Dr. Gomez Oliva Work Phone: [facility] 07-22-2022 10:44-0500 Body weight 71.[address] Gomez Oliva Work Phone: [facility] 07-22-2022 10:44-0500 Diastolic blood pressure 84 mm[Hg] Dr. Gomez Oliva Work Phone: [facility] 07-22-2022 10:44-0500 Heart rate 74 /min Dr. Gomez Oliva Work Phone: [facility] 07-22-2022 10:44-0500 Respiratory rate 18 /min Dr. Gomez Oliva Work Phone: [facility] 07-22-2022 10:44-0500 SaO2% (BldA) [Mass fraction] 98 % Dr. Gomez Oliva Work Phone: [facility] 07-22-2022 10:44-0500 Systolic blood pressure 132 mm[Hg] Dr. Gomez Oliva Work Phone: [facility] Encounters Encounter Date Encounter Type Care Provider Facility Start: 07-31-2025 ambulatory Gomez Oliva Facilit y:[facility] Start: 08-31-2024 End: 08-31-2024 ambulatory Gomez Oliva Facility:[facility] Start: 07-28-2024 End: 07-28-2024 ambulatory Gomez Oliva Facility:[facility] Start: 07-14-2024 End: 09-01-[address] IVANNA VALE MD Facility:[facility] Start: 07-14-2024 End: 09-01-[address] IVANNA VALE MD [facility] Start: 06-09-2024 End: 06-09-2024 Office outpatient new 60 minutes Abad Sanches MD Work Phone: [facility] Comment on above: Primary osteoarthrit is of both knees (Primary Dx); Deep vein thrombosis (DVT) of left lower extremity, unspecified chronicity, unspecified vein (Multi) Start: 06-09-2024 End: 06-10-2024 ambulatory ABAD SANCHES [facility] Start: 07-02-2023 End: 07-02-[address] Gomez Oliva Work Phone: [facility] Work Phone: Start: 07-02-2023 End: 07-02-[address] Gomez Oliva Work Phone: [facility] Work Phone: Start: 05-27-2023 End: 05-27-[address] Gomez Oliva Work Phone: [facility] Work Phone: Start: 11-10-2022 End: 11-10-[address] Gomez Oliva Work Phone: [facility] Work Phone: Start: 11-10-2022 End: 11-10-[address] [facility] Start: 08-21-2022 End: 08-21-[address] Gomez Oliva Work Phone: [facility] Work Phone: Start: 08-21-2022 End: 08-21-[address] [facility] Start: 08-04-2022 End: 08-04-[address] Gomez Oliva Work Phone: [facility] Work Phone: Start: 08-04-2022 End: 08-04-[address] [facility] Start: 07-24-2022 End: 07-24-[address] Gomez Oliva Work Phone: [facility] Work Phone: Start: 07-24-2022 End: 07-24-[address] [facility] Start: 07-22-2022 End: 07-22-[address] Gomez Oliva Work Phone: [facility] Work Phone: Start: 07-22-2022 End: 07-22-[address] Gomez Oliva Work Phone: [facility] Start: 07-10-2022 End: 07-10-2022 ambulatory [facility] Work Phone: Start: 07-10-2022 End: 07-10-2022 Patient encounter procedure [facility] Start: 04-17-2021 Patient encounter status [facility] Procedures Date Procedure Procedure Detail Performing Clinician Start: 07-02-2023 Screening mammography Katerina Oliva Work Phone: Start: 07-10-2022 Screening mammography Measurement of occul t blood in stool specimen using immunoassay Dr. Gomez Oliva Work Phone: Measurement of occul t blood in stool specimen using immunoassay Dr. Gomez Oliva Work Phone: Plan of Treatment Date Care Activity Detail Author Start: 2033 RSV High Risk: (Elde rly (60+) or Population) (1 - 1-dose 75+ series) RSV High Risk: (Elderly (60+) or Population) (1 - 1-dose 75+ series) [facility] Start: 09-24-2026 DTaP/Tdap/Td Vaccine s (2 - Td or Tdap) DTaP/Tdap/Td Vaccines (2 - Td or Tdap) [facility] Start: 06-09-2024 End: 06-09-2025 aPTT in Platelet poor plasma by Coagulation assay [facility] Work Phone: Comment on above: Expected: 06/09/2024 (Approximate), Expires: 06/09/2025 Start: 06-09-2024 End: 06-09-2025 Prothrombin time (PT) [facility] Work Phone: Comment on above: Expected: 06/09/2024 (Approximate), Expires: 06/09/2025 Start: 11-19-2016 Zoster Vaccines (2 of 3) Zoste r Vaccines (2 of 3) [facility] Start: 10-22-2016 MMR Vaccines (1 of 1 - Standard series) MMR Vaccines (1 of 1 - Standard series) [facility] Start: 1998 Screening for malign ant neoplasm of breast Mammogram [facility] Start: 1979 Screening for malign ant neoplasm of cervix [facility] Start: 1976 Hepatitis C screening Hepatitis C Sc reening [facility] Start: 1960 Lipid panel Lipid Panel [facility] Start: 1960 Medicare Annual Well ness Visit Medicare Annual Wellness Visit (AWV) [facility] Start: 1960 Screening for malign ant neoplasm of colon [facility] Start: 1958 Screening for osteoporosis Bone Density Scan [facility] Payers Date Payer Category Payer Unknown [id number] 2024 Self-pay [id number] 2023 Medicare (Managed Care) [employer]IC[employer] [id number] 2023 Unknown [id number] 1958 Unknown [id number] 1958 Unknown [id number] 1958 Unknown [id number] Medicare MEDICARE PART A B [id number] Unknown ANTHEM [id number] Unknown [id number] Unknown [id number] Unknown [facility] [id number] Unknown [facility] [id number] Unknown [id number] Unknown [id number] Unknown [id number] Social History Date Type Detail Facility Start: 04-17-2021 End: 05-27-2023 Tobacco smoking status ORIS Unknown if ever smoked [facility] Start: 1960 Sex Assigned At Female [facility] Start: 06-09-2024 Tobacco smoking stat us ORIS Never smoked tobacco [facility] Work Phone: History of tobacco use Passive smoker [facility] Work Phone: Start: 06-09-2024 Tobacco use and exposure Smokeless tobacco non-user [facility] Work Phone: Start: 06-09-2024 Alcoholic beverage intake Current drinker of alcohol (finding) [facility] Work Phone: Start: 06-09-2024 History of Social function [facility] Work Phone: Start: 06-09-2024 Tobacco use panel [facility] Work Phone: Start: 06-09-2024 Alcohol Comment drinks socially [facility] Work Phone: Start: 1960 Sex assigned at Not on file [facility] Work Phone: Functional Status Date Assessment Result Facility 07-14-2024 Functional Status Home Living Ad ditional Information Objective: Cardiovascular screen: BP: 118/78 HR: 82 BPM O2 sat: 97% Observation: Does have well healed incision but some scabbing is present. no obvious signs of infection. Gait: Ambulates with single tip cane [place]ISE. Does not rely on it heavily. Weight bearing status: WBAT Observation in standing: weight shift R Effusion: min to no knee effusion. Functional Strength: ASLR: 4 Sit to stand: PAR[place]ISE from standard height relies on arms. from elevated height able to perform without UE assist. Palpation: denies tenderness to palpation bilat calf region. Special Tests: Homans: - [facility] History of Present illness Narrative 06-09-2024 Abad Sanches MD - 06/09/2024 8:15 AM EDT Note Date & Type Note Facility 06-09-2024 History of Present illness Narrative Patient ID: Josephine Choi is a 63 y.o. female. Referring Physician: No referring provider defined for this encounter. Primary Care Provider: Gomez Oliva DO Visit Type: Initial Visit The patient was referred to me for surgical clearance scheduled for June 22, 2024 total left knee arthroplasty. Subjective HPI The patient is a 63-year-old woman with past medical history of gastric bypass, obesity, diabetes which has resolved post gastric bypass. The patient underwent KATHY/BSO in 2002 at the age of 40 for heavy menstrual period. The patient was receiving oral contraceptives prior to and while undergoing surgery for KATHY/BSO to regulate her.'s. Postoperatively the patient developed left leg DVT and was treated with anticoagulation. There is no antecedent history of blood clots there is no history of blood clots following the incidence no family history of blood clots or bleeding diathesis. The patient was referred for surgery clearance At interview on June 09, 2024 the patient was accompanied by her . She complains of left knee pain and hobbles while walking. Denied history of recent weight loss, fevers, night sweats, chest pain, shortness of breath, hemoptysis, nausea, vomiting, hematemesis, melena, hematochezia and hematuria. Past medical history: Obesity, gastric bypass, diabetes mellitus which has resolved since gastric bypass Past surgical history: For surgery, gastric bypass, KATHY/BSO in 2002 for heavy menstrual period the patient was receiving oral contraceptives prior to and while going through surgery. Thus, this was a provoked left leg deep vein thrombosis. No antecedent history of blood clots no history of blood clots after this incidence, left knee meniscus repair, lumbar spine surgery hemilaminectomy inferior L2, laminectomy L3 revision laminectomy L4 revision laminectomy L5 on December 09, 2016 Family history mother had uterine cancer at age 32 age 71 from diabetes related complications, history of heart disease, hypertension, hypothyroidism, TIA, arthritis. Father had emphysema Sister has arthritis insulin-dependent diabetes Brother also has insulin-dependent diabetes. Personal history and social history: 63 years old, , has 3 children worked as a telephone operator receptionist at [employer] no history of smoking occasional alcohol no history of drug abuse Review of Systems All other systems reviewed and are negative. Objective BSA: 1.73 meters squared BP 123/79 Pulse 75 Temp 36.4 C (97.5 F) (Temporal) Resp 16 Ht (S) 1.515 m (4' 11.65) Wt 71.5 kg (157 lb 10.1 oz) SpO2 96% BMI 31.15 kg/m has no past medical history on file. has no past surgical history on file. No family history on file. Oncology History No history exists. Josephine Choi reports that she has never smoked. She has been exposed to tobacco smoke. She has never used smokeless tobacco. She reports current alcohol use. She reports no history of drug use. Physical Exam Constitutional: Appearance: Normal appearance. HENT: Head: Normocephalic and atraumatic. Nose: Nose normal. Mouth/Throat: Mouth: Mucous membranes are moist. Pharynx: Oropharynx is clear. Eyes: Extraocular Movements: Extraocular movements intact. Conjunctiva/sclera: Conjunctivae normal. Pupils: Pupils are equal, round, and reactive to light. Cardiovascular: Rate and Rhythm: Normal rate and regular rhythm. Pulmonary: Effort: Pulmonary effort is normal. Breath sounds: Normal breath sounds. Abdominal: General: Abdomen is flat. Bowel sounds are normal. Palpations: Abdomen is soft. Musculoskeletal: General: Normal range of motion. Cervical back: Normal range of motion and neck supple. Neurological: General: No focal deficit present. Mental Status: She is alert and oriented to person, place, and time. Mental status is at baseline. Psychiatric: Mood and Affect: Mood normal. Behavior: Behavior normal. Thought Content: Thought content normal. Judgment: Judgment normal. No results found for: WBC No results found for: NRBC No results found for: RBC No results found for: HGB No results found for: HCT No results found for: MCV No results found for: MCH No results found for: MCHC No results found for: RDW No results found for: PLT No results found for: MPV No results found for: NEUTOPHILPCT No results found for: IGPCT No results found for: LYMPHOPCT No results found for: MONOPCT No results found for: EOSPCT No results found for: BASOPCT No results found for: NEUTROABS No results found for: IGABSOL No results found for: LYMPHSABS No results found for: MONOSABS No results found for: EOSABS No results found for: BASOSABS No components found for: PT No results found for: APTT Assessment/Plan The patient is a 63-year-old woman with past medical history of gastric bypass, obesity, diabetes which has resolved post gastric bypass. The patient underwent KATHY/BSO in 2002 at the age of 40 for heavy menstrual period. The patient was receiving oral contraceptives prior to and while undergoing surgery for KATHY/BSO to regulate her.'s. Postoperatively the patient developed left leg DVT and was treated with anticoagulation. There is no antecedent history of blood clots there is no history of blood clots following the incidence no family history of blood clots or bleeding diathesis. The patient was referred for surgery clearance. Physical examination within normal limits. Reviewed lab data with the patient. CBC on June 02, 2024 revealed WBC hemoglobin and platelets all in reference range. I have recommended PT, APTT, INR to establish baseline. I had a detailed discussion with the patient explained to her that oral contraceptives are generally procoagulant and given the right set of circumstances can provoke deep vein thrombosis. The patient was receiving oral contraceptives before and during 2002 KATHY/BSO performed for heavy menstrual period. The patient did develop left leg deep vein thrombosis postoperatively and received anticoagulation. There is no antecedent history there is no history of blood clots in the recent past. There is no family history of blood clots or bleeding diathesis. Thus, I feel it was a provoked deep vein thrombosis and hypercoagulable state workup not recommended. Would recommend DVT prophylaxis which is generally done postoperatively since. While in patient's Lovenox 40 mg SQ daily and on discharge oral anticoagulant such as Coumadin or Eliquis as deemed appropriate by you. The patient understood appreciated all the details provided and was grateful. Thank you for allowing me to participate in care of your patient if you have any questions please feel free to call me. Diagnoses and all orders for this visit: Primary osteoarthritis of both knees - Protime-INR; Future - aPTT; Future Deep vein thrombosis (DVT) of left lower extremity, unspecified chronicity, unspecified vein (Multi) - Protime-INR; Future - aPTT; Future Abad Sanches MD documented in this encounter [facility] Work Phone: Evaluation + Plan note Note Date & Type Note Facility Evaluation + Plan note No data available for this section [facility] Evaluation note Note Date & Type Note Facility Evaluation note No assessment information availa ble [facility] Work Phone: Evaluation note Note Date & Type Note Facility Evaluation note Diagnosis Onset Date Syncope and collapse acute [facility] Work Phone: Evaluation note Note Date & Type Note Facility Evaluation note Diagnosis Onset Date BPPV (benign paroxysmal positional vertigo) acute History of borderline diabetes mellitus acute Iron deficiency anemia, unspecified acute Reflux esophagitis acute [facility] Work Phone: Evaluation note Note Date & Type Note Facility Evaluation note Diagnosis Primary osteoarthritis of both knees- Primary Deep vein thrombosis (DVT) of left lower extremity, unspecified chronicity, unspecified vein (Multi) documented in this encounter [facility] Work Phone: Hospital Discharge instructions Note Date & Type Note Facility Hospital Discharge instructions No data available for this section [facility] Progress note Note Date & Type Note Facility Progress note No data available for this section [facility] Chief Complaint and Reason for Visit Chief Complaint SCREENING Chief Complaint SCREENING on and off dizzy spells/recent fall Reason for Visit Syncope and collapse Chief Complaint on and off dizzy spe lls/recent fall Reason for Visit Syncope and collapse Chief Complaint 6 M FU SCREENING Reason for Visit BPPV (benign paroxys mal positional vertigo) History of borderline diabetes mellitus Iron deficiency anemia, unspecified Reflux esophagitis Family History No Family History Records Found Relationship Condition Age at Onset Recorded Date/T jamey mother Hypertension Unknown Cardiac disease Unknown Disorder of thyroid Unknown Diabetes mellitus Unknown sister Diabetes mellitus Unknown Summary Purpose Advance Directives No Advanced Directives Records FoundNo Advanced Directives Records FoundNo Advanced Directives Records Found Additional Source Comments Goals (unrecognized section and content) Goals may be documented in a n alternate sectionGoals may be documented in an alternate sectionGoals may be documented in an alternate sectionGoals may be documented in an alternate sectionGoals may be documented in an alternate sectionGoals may be documented in an alternate sectionGoals may be documented in an alternate section No data available for this section Care Teams (unrecognized sec tion and content) Team Status: Active Member Role Status Dates Dr. Gomez Oliva DO Family Provider Active Dr. Gomez Oliva DO Primary Care Provider Active Team Status: Inactive Member Role Status Dates Dr. Gomez Oliva DO Primary Care Pr ovider, Attending Provider, Referring Provider Active Team Status: Inactive Member Role Status Dates Dr. Gomez Oliva DO Primary Care Provider, Attend ing Provider Active [facility] Relationship Specialty Start Date End Date Gomez Oliva DO [address] [place] [address] PCP - General Family Medicine 06/09/24 Abad Sanches MD [address] [facility], [address] [place] [address] Consulting Physician Hematology and Oncology 06/09/24 Reason for Visit (unrecogniz ed section and content) Reason Comments New Patient Visit INFORMATION SOURCE (unrecogn ized section and content) DATE CREATED AUTHOR 06/13/2024 [facility] DATE CREATED AUTHOR AUTHOR'S ORGANIZ ATION 09/06/2024 [facility] DATE CREATED AUTHOR AUTHOR'S ORGANIZ ATION 06/30/2025 [facility] FOR RECORDS PERTAINING TO PATIENTS WHO ARE OR HAVE BEEN ENROLLED IN A CHEMICAL DEPENDENCY/SUBSTANCEABUSE PROGRAM, SOME INFORMATION MAY BE OMITTED. This clinical summary was aggregated from multiple sources. Caution should be exercised in using it in the provision of clinical care. This summary normalizes information from multiple sources, and as a consequence, information in this document may materially change the coding, format and clinical context of patient data. In addition, data may be omitted in some cases. CLINICAL DECISIONS SHOULD BE BASED ON THE PRIMARY CLINICAL RECORDS. [employer] provides no warranty or guarantee of the accuracy or completeness of information in this document.
== END | disposition home or self-care (01) ==
LOC: OPBI 10:54
PROVIDERS: PCP Family Medicine; Referring Provider Family Medicine; Visit Provider Family Medicine
DX: Z12.31 Encounter for screening mammogram for malignant neoplasm of breast (principal)
CPT/HCPCS: 77063; 77067